=== PATIENT | male | born 1965 | race Caucasian/White ===

== ENCOUNTER 2016-11-03 07:36 | Inpatient (IN) | payer OTHER ==
[~2016-11-03] VITALS: Ht 162.6 cm; Wt 64.8 kg
[~2016-11-03 07:36] MED LIST: ACYC-114 PO; ALPR0.254 PO; ASPI-496 PO; ASPI1TAB30 PO; AZIT500T77 PO; BENA20TA2 PO; CEFD300C37 PO; CHEMO IV; DEXA4TAB PO; DULO60CA7 PO; ERGO500017 PO; FLUO20CA8 PO; FURO20TA3 PO; GABA300C10 PO; INSU100C; INSU100I18 SQ-INSULIN; INSU100I28 SQ-INSULIN; LENA10CA PO; LENA5CAP; LEVO750T26 PO; LINE600T37 PO; LISI-167 PO; LISI-170 PO; LORA1TAB PO; MORP15TA PO; MULT-412 PO; OMEP-110 PO; ONDA8TAB9 PO; OXYC-302 PO; OXYC10TA6 PO; POMA4CAP PO; PROC10TA PO; PROC10TA78 PO; SUCR1ORA11 PO; ZOLP5TAB6 PO
[2016-11-03] MEDS ORDERED: ONDANSETRON 2MG/ML, 2ML ONE (07:47)
[2016-11-03] MEDS ORDERED: SODIUM CHLORIDE 0.9% 1,000ML IVBOLUS ONE (08:00)
[2016-11-03] MEDS ORDERED: SODIUM CHLORIDE FLUSH 10ML SYR IVF ONE (08:00)
[2016-11-03] MEDS ORDERED: ONDANSETRON 2MG/ML, 2ML IVPush ONE (08:00)
[2016-11-03] MEDS ORDERED: CHOL2000 PO (08:21)
[2016-11-03] MEDS ORDERED: CYCL-259 PO (08:21)
[2016-11-03] MEDS ORDERED: AMLO5TAB2 PO (08:21)
[2016-11-03 08:44] LABS: ASPARTATE AMINO TRANSFERASE 18 U/L (15-37); BLOOD UREA NITROGEN 24 mg/dL (7-18)
[2016-11-03] MEDS ORDERED: MAALOX/HYOSCYAMINE/LIDOCAINE 45 ML BOTTLE ONE (09:11)
[2016-11-03] MEDS ORDERED: FAMOTIDINE 20 MG/2 ML ONE (09:11)
[2016-11-03] MEDS ORDERED: FAMOTIDINE 20 MG/2 ML IVP ONE (09:30)
[2016-11-03] MEDS ORDERED: MAALOX/HYOSCYAMINE/LIDOCAINE 45 ML BOTTLE PO ONE (09:30)
[2016-11-03 09:46] LABS: PATH.CAST-FLAG NOT PRESENT; SPERM-FLAG NOT PRESENT; SRC-FLAG NOT PRESENT; XTAL-FLAG NOT PRESENT; YLC-FLAG NOT PRESENT
[2016-11-03] MEDS ORDERED: INSULIN REGULAR 100 UNITS/ML, 3ML VIAL IVPush ONE (10:30)
[2016-11-03] MEDS ORDERED: hydrALAzine 20 MG/ML, 1ML IVPush PRN (11:00)
[2016-11-03] MEDS ORDERED: ACETAMINOPHEN 325 MG TABLET PO PRN (11:00)
[2016-11-03] MEDS ORDERED: morphine SULFATE 10 MG/ML, 1ML IVPush PRN (11:00)
[2016-11-03] MEDS ORDERED: PROMETHAZINE 25 MG/ML, 1ML IM PRN (11:00)
[2016-11-03] MEDS ORDERED: LORazepam 2 MG/ML, 1ML IVPush PRN (11:00)
[2016-11-03] MEDS ORDERED: ONDANSETRON 2MG/ML, 2ML IVPush PRN (11:00)
[2016-11-03 11:32] VITALS: BP 123/78
[2016-11-03] MEDS: SODIUM CHLORIDE 0.9% 1,000 ML IV SCH ×2 (11:35→16:01)
[2016-11-03] MEDS: HEPARIN 5,000 UNITS/ML, 1ML SQ SCH ×2 (11:43→20:28)
[2016-11-03] MEDS: AMLODIPINE 5 MG TABLET PO SCH (12:00)
[2016-11-03] MEDS ORDERED: DEXTROSE 4 GM TAB.CHEW PO PRN (12:00)
[2016-11-03] MEDS: OMEPRAZOLE 20 MG CAPSULE.DR PO SCH ×2 (12:00→20:28)
[2016-11-03] MEDS ORDERED: GLUCAGON 1 MG IM PRN (12:00)
[2016-11-03] MEDS ORDERED: DEXTROSE 50%, 50ML SYRINGE IVPush PRN (12:00)
[2016-11-03 13:11] LABS: BLOOD UREA NITROGEN 30 mg/dL (7-18)
[2016-11-03 14:11] VITALS: BP 94/64
[2016-11-03] MEDS ORDERED: REGULAR INSULIN 62.5 UNITS in SODIUM CHLORIDE 0.9% 249.375 ML IV PRN (15:00)
[2016-11-03 15:11] VITALS: BP 114/70
[2016-11-03 15:16] LABS: ABG COLLECTION SITE RIGHT BRACHIAL
[2016-11-03] MEDS ORDERED: INSULIN ASPART 100 UNITS/ML, PEN SQ-INSULIN SCH (16:00)
[2016-11-03] MEDS ORDERED: CYCLOBENZAPRINE 10 MG TABLET PO SCH (16:00)
[2016-11-03] MEDS ORDERED: CYCLOBENZAPRINE 10 MG TABLET PO PRN (16:00)
[2016-11-03 16:25] VITALS: BP 108/62
[2016-11-03 17:06] LABS: BLOOD UREA NITROGEN 33 mg/dL (7-18)
[2016-11-03] MEDS: ACYCLOVIR 800 MG TABLET PO SCH (20:27)
[2016-11-03] MEDS: D5%-0.45% NACL 1,000 ML IV SCH (20:30)
[2016-11-03] MEDS: HYDROcodone/APAP 5/325 TABLET PO PRN (20:31)
[2016-11-03] MEDS: SODIUM CHLORIDE FLUSH 10ML SYR IVF SCH (21:00)
[2016-11-03 21:31] LABS: BLOOD UREA NITROGEN 31 mg/dL (7-18)
[2016-11-04] MEDS: SODIUM CHLORIDE 0.9% 1,000 ML IV SCH (00:17)
[2016-11-04 01:51] LABS: BLOOD UREA NITROGEN 29 mg/dL (7-18)
[2016-11-04] MEDS: D5%-0.45% NACL 1,000 ML IV SCH (03:53)
[2016-11-04] MEDS ORDERED: INSULIN ASPART 100 UNITS/ML, PEN ONE (05:25)
[2016-11-04] MEDS ORDERED: INSULIN DETEMIR 100 UNITS/ML, PEN ONE (05:25)
[2016-11-04] MEDS ORDERED: INSULIN DETEMIR 100 UNITS/ML, PEN SQ-INSULIN SCH (05:30)
[2016-11-04] MEDS: HEPARIN 5,000 UNITS/ML, 1ML SQ SCH ×2 (05:32→12:00)
[2016-11-04 06:45] LABS: BLOOD UREA NITROGEN 25 mg/dL (7-18)
[2016-11-04 06:48] LABS: ASPARTATE AMINO TRANSFERASE 11 U/L (15-37)
[2016-11-04] MEDS: INSULIN ASPART 100 UNITS/ML, PEN SQ-INSULIN SCH ×2 (07:33→11:13)
[2016-11-04] MEDS ORDERED: ASPIRIN 81 MG TABLET EC PO SCH ×2 (09:00)
[2016-11-04] MEDS ORDERED: DULOXETINE 30 MG CAPSULE.DR PO SCH (09:00)
[2016-11-04] MEDS: AMLODIPINE 5 MG TABLET PO SCH (09:02)
[2016-11-04] MEDS: OMEPRAZOLE 20 MG CAPSULE.DR PO SCH (09:03)
[2016-11-04] MEDS: ACYCLOVIR 800 MG TABLET PO SCH (09:03)
[2016-11-04] MEDS: HYDROcodone/APAP 5/325 TABLET PO PRN (09:04)
[2016-11-04 10:41] LABS: BLOOD UREA NITROGEN 21 mg/dL (7-18)
[2016-11-04] MEDS: SODIUM CHLORIDE FLUSH 10ML SYR IVF SCH (11:15)
[2016-11-04] MEDS ORDERED: INSU100I28 SQ-INSULIN (11:47)
[2016-11-04] MEDS ORDERED: INSU100V14 SC (11:47)
== END 2016-11-04 13:15 | disposition home or self-care (01) | DRG 393 ==
LOC: ED 08:55 → EDIP 10:34 → 3NW 11:20 → CCU 15:20
PROVIDERS: ADMIT Internal Medicine; ATTEND Internal Medicine
DX: K52.1 Toxic gastroenteritis and colitis (principal); E10.10 Type 1 diabetes mellitus with ketoacidosis without coma; N17.9 Acute kidney failure, unspecified; C90.00 Multiple myeloma not having achieved remission; E87.1 Hypo-osmolality and hyponatremia; D89.9 Disorder involving the immune mechanism, unspecified; B18.2 Chronic viral hepatitis C; E10.9 Type 1 diabetes mellitus without complications; I10 Essential (primary) hypertension; K21.9 Gastro-esophageal reflux disease without esophagitis; E86.0 Dehydration; T45.1X5A Adverse effect of antineoplastic and immunosuppressive drugs, initial encounter; E10.65 Type 1 diabetes mellitus with hyperglycemia; E10.42 Type 1 diabetes mellitus with diabetic polyneuropathy; Z88.2 Allergy status to sulfonamides; Z79.4 Long term (current) use of insulin; Z82.5 Family history of asthma and other chronic lower respiratory diseases; Y92.89 Other specified places as the place of occurrence of the external cause
CPT/HCPCS: 36415; 36600; 80048; 80053; 81001; 82010; 82803; 82962; 83690; 83735; 84100; 85025; 87081; 93005; 96374; 96375; J1644; J1815; J2405; J2060; J2270; J7030; J7050; S0028

== ENCOUNTER → 2017-01-31 | Outpatient (CLI) | payer OTHER ==
[~2017-01-31] MED LIST changes: +AMLO5TAB2 PO; -ASPI1TAB30 PO; +ASPI1TAB31 PO; +AZIT500T5 PO; -AZIT500T77 PO; +CHOL2000 PO; +CYCL-259 PO; +INSU100V14 SC
== END | disposition home or self-care (01) ==
LOC: CFH 08:28
PROVIDERS: ATTEND Specialist
DX: Z51.11 Encounter for antineoplastic chemotherapy (principal); I05.8 Other rheumatic mitral valve diseases; C90.00 Multiple myeloma not having achieved remission; E10.9 Type 1 diabetes mellitus without complications
CPT/HCPCS: 93306

== ENCOUNTER 2017-02-26 01:55 | Emergency (ER) | payer OTHER ==
[~2017-02-26] VITALS: Ht 162.6 cm; Wt 68.0 kg
[2017-02-26] MEDS ORDERED: ONDANSETRON 2MG/ML, 2ML ONE (02:37)
[2017-02-26] MEDS ORDERED: SODIUM CHLORIDE 0.9% 1,000ML IVBOLUS ONE (03:00)
[2017-02-26] MEDS ORDERED: ONDANSETRON 2MG/ML, 2ML IVPush ONE (03:00)
[2017-02-26] MEDS ORDERED: METOCLOPRAMIDE 5 MG/ML, 2ML IVPush ONE (03:00)
[2017-02-26] MEDS ORDERED: DIPHENHYDRAMINE 50 MG/ML, 1ML IVPush ONE (03:00)
[2017-02-26 03:05] LABS: HEMATOCRIT 35.6 % (39.2-51.8); HEMOGLOBIN 12.2 g/dL (13.7-18.0); WHITE BLOOD COUNT 5.6 x10^3/uL (3.4-10)
[2017-02-26 03:17] LABS: BLOOD UREA NITROGEN 21 mg/dL (7-18)
[2017-02-26 03:21] LABS: ASPARTATE AMINO TRANSFERASE 15 U/L (15-37)
[2017-02-26 04:44] VITALS: BP 125/68
== END 2017-02-26 05:05 | disposition home or self-care (01) ==
LOC: ED 04:59
DX: E86.0 Dehydration (principal); E11.65 Type 2 diabetes mellitus with hyperglycemia; Z79.4 Long term (current) use of insulin
CPT/HCPCS: 36415; 80053; 82962; 83690; 85025; 96361; 96374; 99284; J2405; J7030

== ENCOUNTER 2017-02-28 11:10 | Emergency (ER) | payer OTHER ==
[~2017-02-28] VITALS: Ht 162.6 cm; Wt 65.9 kg
[2017-02-28] MEDS ORDERED: SODIUM CHLORIDE FLUSH 10ML SYR IVF ONE (12:00)
[2017-02-28 12:36] LABS: BLOOD UREA NITROGEN 14 mg/dL (7-18)
[2017-02-28 12:47] LABS: HEMATOCRIT 37.2 % (39.2-51.8); HEMOGLOBIN 12.6 g/dL (13.7-18.0); WHITE BLOOD COUNT 7.2 x10^3/uL (3.4-10)
[2017-02-28] MEDS ORDERED: OMNIPAQUE 350 MG/ML, 100ML BOTTLE ONE (14:00)
[2017-02-28 15:18] LABS: IS PT STATUS REG ER OR PRE ER? YES
[2017-02-28 16:04] VITALS: BP 166/99
== END 2017-02-28 16:06 | disposition home or self-care (01) ==
LOC: ED 12:00
DX: R06.00 Dyspnea, unspecified (principal); E11.65 Type 2 diabetes mellitus with hyperglycemia; I10 Essential (primary) hypertension; K21.9 Gastro-esophageal reflux disease without esophagitis
CPT/HCPCS: 36415; 71020; 71275; 80048; 82040; 83880; 84484; 85025; 93005; 99285; Q9967

== ENCOUNTER 2017-12-18 06:27 | Day surgery (SDC) | payer OTHER ==
[~2017-12-18] VITALS: Ht 160 cm; Wt 61.5 kg
[~2017-12-18 06:27] MED LIST changes: -BENA20TA2 PO; +BENA20TA4 PO; -PROC10TA PO; +PROC10TA2 PO
[2017-12-18] MEDS ORDERED: LIDOCAINE-MPF 2%, 2ML ONE ×2 (07:17→08:33)
[2017-12-18 07:19] VITALS: BP 140/86
[2017-12-18] MEDS ORDERED: MIDAZOLAM 1 MG/ML, 5ML ONE (07:19)
[2017-12-18] MEDS ORDERED: NALOXONE 1 MG/ML, 2ML ONE (07:19)
[2017-12-18] MEDS ORDERED: FLUMAZENIL 0.1 MG/1 ML, 5ML ONE (07:19)
[2017-12-18] MEDS ORDERED: FENTANYL PF 100 MCG/2ML ONE (07:19)
[2017-12-18] MEDS ORDERED: SODIUM CHLORIDE 0.9% 1,000 ML IV SCH (07:30)
[2017-12-18] MEDS ORDERED: CEFAZOLIN PMX 1GM/50ML 50 ML IV ONE (07:30)
== END 2017-12-18 11:00 | disposition home or self-care (01) ==
LOC: OUT 06:27 → EDSTATUS 07:30 → OUT 11:00
PROVIDERS: ATTEND Specialist
DX: Z45.2 Encounter for adjustment and management of vascular access device (principal); C90.00 Multiple myeloma not having achieved remission; E11.42 Type 2 diabetes mellitus with diabetic polyneuropathy; F19.90 Other psychoactive substance use, unspecified, uncomplicated; I10 Essential (primary) hypertension; I51.7 Cardiomegaly; K21.9 Gastro-esophageal reflux disease without esophagitis; Z88.1 Allergy status to other antibiotic agents; Z86.19 Personal history of other infectious and parasitic diseases; Z98.890 Other specified postprocedural states; Z79.899 Other long term (current) drug therapy; Z87.891 Personal history of nicotine dependence; Z79.82 Long term (current) use of aspirin; Z88.2 Allergy status to sulfonamides; Z79.4 Long term (current) use of insulin; Z87.01 Personal history of pneumonia (recurrent); Z94.84 Stem cells transplant status
CPT/HCPCS: 36561; 76937; 77001; 99156; 99157; C1788; C1894; J0690; J1642; J2250; J3010; J3490; J7030; J2310

== ENCOUNTER 2020-02-25 10:41 | Emergency (ER) | payer OTHER ==
[~2020-02-25] VITALS: Ht 160 cm; Wt 66.5 kg
[~2020-02-25 10:41] MED LIST changes: +AMLO-150 PO; -AMLO5TAB2 PO; +ATOR10TA9 PO; +AZIT500T10 PO; -AZIT500T5 PO; -BENA20TA4 PO; +BENA20TA54 PO; +CALCIUM; +DAPS100T PO; +DEXA1.5T28 PO; +FLUO20CA23 PO; -FLUO20CA8 PO; +LEVO25TA2 PO; +LINE600T12 PO; -LINE600T37 PO; -SUCR1ORA11 PO; +SUCR1ORA14 PO
[2020-02-25 11:33] LABS: MICROSCOPIC NOT IND
[2020-02-25 11:51] LABS: BASOPHILS % (AUTO) 1 % (0-1); EOSINOPHILS % (AUTO) 1 % (1-7); LYMPHOCYTES % (AUTO) 23 % (22-44); MEAN CORPUSCULAR HEMOGLOBIN 29.8 pg (27.5-34.5); MEAN PLATELET VOLUME 7.3 fL (7.4-10.4); MONOCYTES % (AUTO) 7 % (2-9); NEUTROPHILS % (AUTO) 70 % (42-75); PLATELET COUNT 251 x10^3/uL (130-400); RED BLOOD COUNT 4.89 x10^6/uL (4.38-5.82); RED CELL DISTRIBUTION WIDTH 12.7 % (9.4-14.8)
[2020-02-25 11:52] LABS: ALANINE AMINOTRANSFERASE 24 U/L (12-78); ALBUMIN 4.1 g/dL (3.4-5.0); ANION GAP 6 mmol/L (5-15); CALCIUM 9.3 mg/dL (8.5-10.1); CHLORIDE 104 mmol/L (98-107); CREATININE 1.43 mg/dL (0.7-1.3)
[2020-02-25 11:54] LABS: ALKALINE PHOSPHATASE 87 U/L (45-117); BILIRUBIN,TOTAL 0.3 mg/dL (0.2-1.0)
[2020-02-25 12:11] LABS: MD NO
--- NOTE | 2020-02-25 13:19 | NUR ---
patient to room at this time.
--- NOTE | 2020-02-25 13:25 | NUR ---
PT AMUBLATED TO ROOM SAFELY PT CAME IN CO OF RIGHT SIDED ABD PAIN X 1 WEEK. "IT HURTS WORSE WHEN I COUGH OR LAUGH". PT STATES HE STILL HAS HIS APPENDIX. PT IS A CANCER PT. LABS DRAWN, X RAY COMPLETE, UA SENT. MD IS BEDSIDE FOR ASSESSMENT.
[2020-02-25] MEDS ORDERED: SODIUM CHLORIDE 0.9% 1,000ML IVBOLUS ONE (13:30)
[2020-02-25] MEDS ORDERED: SODIUM CHLORIDE FLUSH 10ML SYR IVF ONE (13:30)
[2020-02-25 13:52] LABS: TROPONIN I < 0.015 ng/mL (0.000-0.045)
--- NOTE | 2020-02-25 13:53 | NUR ---
PTY TO CT AT THIS TIME
[2020-02-25] MEDS ORDERED: OMNIPAQUE 350 MG/ML, 150 ML BOTTLE ONE (13:58)
--- NOTE | 2020-02-25 14:06 | NUR ---
PT IS PART OF CLINCIAL TRIALS FOR HIS CANCER TREATMENT. MEDICATIONS AND PROCEDURES ARE TO BE DISCUSSED WITH HIS ONCOLOGST DR BLAS AT [facility]. [phone]
[2020-02-25 14:34] VITALS: BP 153/97
== END 2020-02-25 14:58 | disposition home or self-care (01) ==
LOC: ED 11:30
DX: R10.11 Right upper quadrant pain (principal); R07.89 Other chest pain; E11.65 Type 2 diabetes mellitus with hyperglycemia; K21.9 Gastro-esophageal reflux disease without esophagitis; I10 Essential (primary) hypertension; R00.0 Tachycardia, unspecified; Z86.19 Personal history of other infectious and parasitic diseases
CPT/HCPCS: 36415; 71045; 74177; 80053; 81003; 83690; 84484; 85025; 85379; 93005; 96360; 99285; J7030; Q9967

== ENCOUNTER 2020-09-26 07:44 | Outpatient (CLI) | payer OTHER ==
[~2020-09-26 07:44] MED LIST changes: -ACYC-114 PO; +ACYC-40 PO; -CYCL-259 PO; +CYCL10TA2 PO; -OXYC-302 PO; +OXYC1TAB14 PO
== END 2020-09-26 23:59 | disposition home or self-care (01) ==
LOC: PETCFH 07:44
PROVIDERS: ATTEND Specialist
DX: C90.02 Multiple myeloma in relapse (principal); C90.01 Multiple myeloma in remission; D80.1 Nonfamilial hypogammaglobulinemia; D70.1 Agranulocytosis secondary to cancer chemotherapy; D64.9 Anemia, unspecified; Z51.11 Encounter for antineoplastic chemotherapy; Z51.12 Encounter for antineoplastic immunotherapy; Z79.899 Other long term (current) drug therapy; Z45.2 Encounter for adjustment and management of vascular access device
CPT/HCPCS: 78815; A9552

== ENCOUNTER 2020-09-30 15:45 | Emergency (ER) | payer OTHER ==
[~2020-09-30] VITALS: Ht 160 cm; Wt 68.4 kg
[2020-09-30 15:52] VITALS: BP 115/79
--- NOTE | 2020-09-30 18:36 | NUR ---
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
--- NOTE | 2020-09-30 18:46 | NUR ---
PT CHANGED INTO GOWN. PT STATES HE WAS WALKING AND FELT A POP IN HIS R-LEG, AFTER THE POP PT STATED HE COULD NOT PUT WEIGHT ON R-LEG.
--- NOTE | 2020-09-30 18:54 | NUR ---
report to SANTINO rn
--- NOTE | 2020-09-30 19:00 | NUR ---
Report from BUBBA Rivero. This RN to assume care.
== END 2020-09-30 20:04 | disposition home or self-care (01) ==
LOC: ED 17:33
DX: M79.661 Pain in right lower leg (principal); I10 Essential (primary) hypertension; E11.9 Type 2 diabetes mellitus without complications; K21.9 Gastro-esophageal reflux disease without esophagitis; G89.29 Other chronic pain
CPT/HCPCS: 29515; 99284